=== PATIENT | male | born 1940 | race Caucasian/White ===

== ENCOUNTER 2017-01-10 23:55 | Observation (INO) | payer MEDICARE, BC ==
--- NOTE | 2017-01-11 00:10 | EDM.PDOC ---
ED HPI GENERAL MEDICAL PROBLEM - General Chief Complaint: General Stated Complaint: irregular heart beat Time Seen by Provider: 01/11/17 00:05 Source of Information: Reports: Patient, Family (Son, ), Old Records ([facility] chart/EMR), Other (Essentially EMR) History Limitations: Reports: No Limitations - History of Present Illness INITIAL COMMENTS - FREE TEXT/NARRATIVE: Patient was brought to the emergency room via private automobile by his son and for valuation of recurrence of his atrial fibrillation with rapid ventricular response with exact onset of his symptoms unknown at this time. He was late taking his evening medications this evening with patient taking his medications at 2100 hrs. rather than at 18:00 hours. No other history of medication noncompliance. The patient denies any chest pain/pressure, dizziness , orthostasis, orthopnea, diaphoresis, paresthesias, recent decreased exercise tolerance, or any other anginal-type symptoms. No recent history of abdominal pain, heartburn, nausea, diarrhea, melena, gross hematochezia, or any food intolerance, including fatty foods, etc.. The patient also denies any recent fever, cough, wheezing, dyspnea, etc.. Onset: Unknown/Unsure Duration: Constant Location: Reports: Other (No pain) Improves with: Reports: None Worsens with: Reports: None Context: Reports: Other (As above) Associated Symptoms: Reports: Weakness. Denies: Confusion, Chest Pain, Cough, Diaphoresis, Fever/Chills, Headaches, Loss of Appetite, Malaise, Nausea/Vomiting , Seizure, Shortness of Breath, Syncope Treatments CORRECTIVE THERAPY AIDE: Reports: Other (see below) (None) - Related Data Allergies Allergy/AdvReac Type Severity Reaction Status Date / Time metformin Allergy TIRED, Verified 01/11/17 00:54 SHAKING, SOB, CHEST PAIN Home Meds: Home Meds Gabapentin 900 mg PO BID 12/29/14 [History] Insulin Glarg,Human.Rec.Analog [LantUS Solostar] 60 units SUBCUT QAM 12/29/14 [ History] atorvaSTATin [Lipitor] 20 mg PO DAILY 12/29/14 [History] SitaGLIPtin [Januvia] 100 mg PO DAILY 01/02/17 [History] Apixaban [Eliquis] 5 mg PO BID 01/11/17 [History] InFLIXimab [Remicade] 100 mg IV ASDIRECTED 01/11/17 [History] Metoprolol Succinate [Toprol XL] 0.5 tab PO DAILY 01/11/17 [History] Past Medical History HEENT History: Reports: Impaired Vision, Other (See Below). Denies: Allergic Rhinitis, Cataract, Glaucoma, Hard of Hearing, Macular Degeneration, Retinal Detachment Other HEENT History: Patient wears glasses Cardiovascular History: Reports: Afib, Arrhythmia, CAD, Cardiomyopathy, Heart Murmur, High Cholesterol, Hypertension, Pulmonary Hypertension, PVD, Syncope, Other (See Below). 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 Denies: Intubation, Previous, Pneumothorax, Sleep Apnea Gastrointestinal History: Reports: Chronic Diarrhea, Colon Polyp, Gastritis, GI Bleed, Inflammatory Bowel Disease, Other (See Below). Denies: Celiac Disease, Cholelithiasis, Diverticulosis, Fecal Incontinence, GERD, Hepatitis, Hiatal Hernia, Jaundice, Pancreatitis, PUD Other Gastrointestinal History: Ulcerative colitis with history of hyperplastic colonic polyps; history of severe lower GI bleed secondary to Coumadin therapy and significantly elevated INR requiring epinephrine injection Genitourinary History: Reports: BPH, Chronic Renal Insuffiency, Diabetic Nephropathy, Other (See Below). Denies: Renal Calculus, STD, Urinary Incontinence, UTI, Recurrent Other Genitourinary History: Diabetic nephropathy with proteinuria Musculoskeletal History: Reports: Arthritis, Back Pain, Chronic, Fracture, Neck Pain, Chronic, Osteoarthritis, Osteoporosis, Other (See Below). Denies: Amputation, Gout, RA, SLE Other Musculoskeletal History: Previous clavicular fracture? Side at about age 12; toe fracture Neurological History: Reports: Neuropathy, Diabetic, Neuropathy, Peripheral, Other (See Below). Denies: Cerebral Aneurysms, Concussion, Head Trauma, MS, Parkinson's, Seizure, TIA Other Neuro History: Benign resting tremor Psychiatric History: Reports: Anxiety, Depression. Denies: Abuse, Victim of, ADD, ADHD, Addiction, Psych Hospitalization(s), PTSD, Suicide Attempt, Suicidal Ideation Endocrine/Metabolic History: Reports: Diabetes, Type II, IDDM, Obesity/BMI 30+. Denies: Hypothyroidism Hematologic History: Reports: Anemia, Blood Transfusion(s), Other (See Below) Other Hematologic History: 6 units of packed red blood cells for severe lower GI bleed on 10/24/16 Immunologic History: Reports: Immunosuppression, Other (See Below). 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 Denies: Eczema, Psoriasis - Infectious Disease History Infectious Disease History: Reports: Chicken Pox, Measles, Mumps. Denies: C- Difficile, Meningitis, Mononucleosis, MRSA, Pertussis (Whooping Cough), Rheumatic Fever, Rubella, Scarlet Fever, Shingles, VRE - Past Surgical History Head Surgeries/Procedures: Reports: None HEENT Surgical History: Reports: Adenoidectomy, Oral Surgery, Tonsillectomy, Other (See Below). Denies: Cataract Surgery, Eye Surgery, Laser Surgery, Myringotomy w Tube(s), Naso-Sinus Surgery Other HEENT Surgeries/Procedures: Tonsillectomy and adenoidectomy at about age 6 ; [place] teeth extraction 4 in his 60s; multiple dental implants in his 60s Cardiovascular Surgical History: Reports: Cardiac Ablation, Other (See Below). Denies: Varicose, Vascular Surgery Other Cardiovascular Surgeries/Procedures: Initial successful electrocardioversion of atrial fibrillation on 10/10/16 Respiratory Surgical History: Reports: None. Denies: Lung Biopsies, Thoracentesis GI Surgical History: Reports: Colonoscopy, EGD, Polypectomy, Other (See Below). Denies: Appendectomy, Cholecystectomy, Hernia, Abdominal, Hernia, Inguinal, Hernia Repair/Other Other GI Surgeries/Procedures: Multiple colonoscopies with last colonoscopy on by his GI specialist in [place] with previous history of polypectomies of hyperplastic colonic polyps; EGD in October 2016 Male Surgical History: Reports: Circumcision, Other (See Below). Denies: Vasectomy Other Male Surgeries/Procedures: Circumcision as an infant Endocrine Surgical History: Reports: None. Denies: Thyroid Biopsy Neurological Surgical History: Reports: None. Denies: C-Spine, Discectomy, Intracranial, Laminectomy, Lumbar Spine, Spinal Fusion, Vertebroplasty Musculoskeletal Surgical History: Reports: None. Denies: Arthroscopic Procedure , Carpal Tunnel, Ganglion Cyst, Joint Replacement, ORIF, Shoulder Surgery Oncologic Surgical History: Reports: None Dermatological Surgical History: Reports: None - Past Imaging History Past Imaging History: Reports: Angiography (Heart catheterization on 02/12/01), Cardiac Echo (Last echocardiogram transesophageal on 10/10/16 with decreased ejection fraction of 40-45% with otherwise results as above), Carotid US (), CAT Scan (CT of the pelvis without contrast on 09/09/13), Stress Testing ( Suboptimal Cardiolite stress test on 04/29/14 with ejection fraction of 69% with previous evaluation on 01/23/01) Social & Family History - Family History HEENT: Reports: None. Denies: Glaucoma, Macular Degeneration, Retinal Detachment Cardiac: Reports: High Cholesterol, Other (See Below). Denies: Afib, Aneurysm, Arrhythmia, Blood Clots/VTE/DVT, CAD, Heart Failure, Hypertension, DC, Syncope Other Cardiac Family History: Mother with hyperlipidemia Respiratory: Reports: None. Denies: Asthma, COPD, PE, Pneumothorax, Sleep Apnea GI: Reports: None, Other (See Below). Denies: Celiac Disease, Cholelithiasis, Colon Polyps, GERD, GI bleed, Inflammatory Bowel Disease, PUD Other GI Family History: Father, son, and daughter with possible colitis : Reports: None. Denies: Renal Calculus, Renal Disease/Insufficiency OBGYN: Reports: None. Denies: Endometriosis, Recurrent Spontaneous Musculoskeletal: Reports: None. Denies: Gout, RA, SLE Neurological: Reports: None. Denies: Alzheimers Disease, CVA, Dementia, Migraines, MS, Parkinson's, Seizure, TIA Psychiatric: Reports: Anxiety, Depression, Suicide Attempt, Other (See Below). Denies: Abuse, Victim of, ADD, ADHD, PTSD Other Psychiatric Family History: Anxiety depression disorder in mother, father , and daughter; daughter with fatal suicide at age 35 with father with successful suicide at age 45 Endocrine/Metabolic: Reports: None. Denies: Diabetes, Type I, Diabetes, type II , Hypothyroidism, IDDM Hematologic: Reports: None, Anemia. Denies: Transfusion Reaction Immunologic: Reports: None. Denies: AIDS, HIV, SLE Dermatologic: Reports: None. Denies: Eczema, Psoriasis Oncologic: Reports: None. Denies: Colon, Hodgkin's Lymphoma, Leukemia, Lymphoma , Non-Hodgkin's Lymphoma, Prostate, Skin - Tobacco Use Smoking Status *Q: Former Smoker Tobacco Use Within Last Twelve Months: Cigarettes Years of Tobacco use: 20 Packs/Tins Daily: 3 (Smoked between ages 20 and 50) Smoking Cessation Information Provided To Patient: No Second Hand Smoke Exposure: No Second Hand Smoke Education Provided: No - Caffeine Use Caffeine Use: Reports: Coffee (4 cups per day). Denies: Energy Drinks, Soda, Tea - Alcohol Use Alcohol Use History: Yes Days Per Week of Alcohol Use: 5 (No previous DWIs, problems with alcohol abuse, etc.) Number of Drinks Per Day: 3 (Usually mixed drinks) Total Drinks Per Week: 15 Alcohol Use in Last Twelve Months: Yes - Recreational Drug Use Recreational Drug Use: No Drug Use in Last 12 Months: No Recreational Drug Type: Denies: Amphetamines (Speed), Cocaine, Heroin, Inhalants (Glues, Solvents, Aerosols), LSD (Acid), Marijuana/Hashish, Methamphetamine - Living Situation & Occupation Living situation: Reports: (1958, 2 children), with Family () 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 Denies: Fever, Fatigue, Night Sweats, Diaphoresis, Decreased Appetite, Weight Loss, Weight Gain, Other HEENT: Denies: Dental Pain, Ear Discharge, Ear Pain, Glasses, Hearing Loss, Nose Pain, Rhinitis, Sinus Problem, Throat Pain, Throat Swelling, Vertigo, Vision Change Respiratory: Reports: No Symptoms. Denies: Shortness of Breath, Wheezing, Cough Cardiovascular: Reports: Palpitations. Denies: Chest Pain, Blood Pressure Problem, Claudication, Dyspnea on Exertion, Edema, Lightheadedness, Orthopnea, PND, Syncope Endocrine: Reports: No Symptoms, Fatigue, Other (Home Accu-Cheks averaging in the 150s with twice a day Accu-Cheks currently) GI/Abdominal: Reports: No Symptoms. Denies: Abdominal Pain, Anorexia, Black Stool, Bloody Stool, Constipation, Diarrhea, Decreased Appetite, Distension, Hematochezia, Melena, Nausea, Stool Incontinence, Vomiting : Reports: No Symptoms. Denies: Discharge, Dysuria, Flank Pain, Frequency, Hematuria, Incontinence, Pain, Urinary Retention Musculoskeletal: Reports: No Symptoms. Denies: Neck Pain, Shoulder Pain, Arm Pain, Back Pain, Leg Pain Skin: Reports: No Symptoms. Denies: Diaphoresis, Bruising Neurological: Reports: Numbness (Stable by history), Paresthesia (As above), Tingling (As above), Weakness (Nonspecific), Gait Disturbance (Unsteady gait). Denies: Confusion, Dizziness, Headache Psychiatric: Reports: Anxiety, Depression. Denies: Agitation, Confusion Hematologic/Lymphatic: Reports: No Symptoms Immunologic: Reports: No Symptoms ED EXAM, GENERAL - Physical Exam Exam: See Below Exam Limited By: No Limitations General Appearance: Alert, WD/WN, No Apparent Distress Eye Exam: Bilateral Eye: EOMI, Normal Fundi (No nystagmus; patient wearing glasses), PERRL Ears: Normal External Exam, Normal Canal, Hearing Grossly Normal, Normal TMs Nose: Normal Inspection, Normal Mucosa, No Blood Throat/Mouth: Normal Inspection, Normal Lips, Normal Teeth, Normal Gums, Normal Oropharynx, Normal Voice, No Airway Compromise. No: Dysphagia, Perioral Cyanosis Head: Atraumatic, Normocephalic Neck: Supple, Non-Tender, Full Range of Motion, Carotid Bruit (Moderate bilateral carotid bruits versus transmitted heart sounds). No: Lymphadenopathy (L), Lymphadenopathy (R), Thyromegaly Respiratory/Chest: No Respiratory Distress, No Accessory Muscle Use, Chest Non- Tender, Rales (Bilateral basilarmild). No: Pleural Rub, Retractions Cardiovascular: Normal Peripheral Pulses, No Edema, No Gallop, No JVD, No Murmur , No Rub, Tachycardia, Irregularly Irregular. No: Gallop/S3, Gallop/S4, Friction Rub Peripheral Pulses: 2+: Radial (L), Radial (R), Dorsalis Pedis (L), Dorsalis Pedis (R) GI/Abdominal: Normal Bowel Sounds, Soft, Non-Tender, No Organomegaly, No Distention, No Abnormal Bruit, No Mass, Other (Obese). No: Guarding (Male) Exam: Deferred Rectal (Males) Exam: Deferred Back Exam: Normal Inspection, Full Range of Motion. No: CVA Tenderness (L), CVA Tenderness (R), Muscle Spasm Extremities: Normal Inspection, Normal Range of Motion, Non-Tender, No Pedal Edema, Normal Capillary Refill. No: Pedal Edema, Ela's Sign Neurological: Alert, Oriented, CN II-XII Intact, Normal Cognition, Normal Reflexes (Negative Babinski's), No Motor/Sensory Deficits Psychiatric: Normal Affect Skin Exam: Warm, Dry, Intact, Normal Color, No Rash. 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 Atrial fibrillation 2. Incomplete right bundle branch block/bifascicular bundle-branch block 3. No acute ischemic changes Course - Vital Signs Last Recorded V/S: Last Vital Signs Temp 36.4 C 01/10/17 23:58 Pulse 106 H 01/11/17 01:00 Resp 17 01/11/17 01:00 BP 122/70 01/11/17 01:00 Pulse Ox 98 01/11/17 01:00 Vital Signs - 24 hr 01/10/17 01/10/17 01/11/17 23:55 23:58 00:05 Temperature [ 36.4 C 36.4 C Temporal] Pulse, 136 H 136 H 136 H Peripheral [ Right Pulse Oximetry] Respiratory 17 17 22 H Rate Blood Pressure 135/91 H 135/91 H 123/74 [Right Upper Arm] O2 Sat by Pulse 99 99 99 Oximetry O2 Sat by Pulse Oximetry [Room Air] 01/11/17 01/11/17 01/11/17 00:11 00:40 01:00 Temperature [ Temporal] Pulse, 106 H 106 H Peripheral [ Right Pulse Oximetry] Respiratory 21 H 17 Rate Blood Pressure 118/62 122/70 [Right Upper Arm] O2 Sat by Pulse 97 98 Oximetry O2 Sat by Pulse 99 Oximetry [Room Air] 01/11/17 01/11/17 01/11/17 01:10 01:21 01:35 Temperature [ Temporal] Pulse, 94 95 98 Peripheral [ Right Pulse Oximetry] Respiratory 21 H 20 18 Rate Blood Pressure 121/47 L 124/43 L 114/51 L [Right Upper Arm] O2 Sat by Pulse 96 98 95 Oximetry O2 Sat by Pulse Oximetry [Room Air] - Orders/Labs/Meds Orders: Active Orders 24 hr Category Date Time Status Cardiac Monitoring [RC] . DIRECTED Care 01/11/17 00:11 Active EKG Documentation Completion [RC] ASDIRECTED Care 01/11/17 00:11 Active Oxygen Therapy, ED [RC] CONTINUOUS Care 01/11/17 00:11 Active Peripheral IV Care [RC] . DIRECTED Care 01/11/17 00:11 Active Pulse Oximetry [RC] CONTINUOUS Care 01/11/17 00:11 Active Up With Assistance [RC] PFP Care 01/11/17 00:11 Active Vital Signs [RC] PFP Care 01/11/17 00:11 Active Nothing per Oral Now Diet [DIET] Diet 01/11/17 Breakfast Active Chest 1V Frontal [CR] Stat Exams 01/11/17 00:11 Ordered Sodium Chloride 0.9% [Saline Flush] Med 01/11/17 00:11 Active 10 ml FLUSH ASDIRECTED PRN Obtain Past Medical Record [OM.PC] Urgent Oth 01/11/17 00:11 Active Peripheral IV Insertion Adult [OM.PC] Stat Oth 01/11/17 00:11 Ordered Resuscitation Status Stat Resus Stat 01/11/17 00:11 Ordered Medication Orders Sodium Chloride (Saline Flush) 10 ml FLUSH ASDIRECTED PRN PRN Reason: Keep Vein Open Last Admin: 01/11/17 01:02 Dose: 10 ml Admin: 01/11/17 00:34 Dose: 10 ml Labs: Laboratory Tests 01/11/17 01/11/17 01/11/17 Range/Units 00:30 00:30 00:30 WBC 9.0 (4.0-10.2) K/uL RBC 4.66 (4.33-5.41) M/uL Hgb 13.2 (13.1-16.8) g/dL Hct 40.7 (39.0-49.0) % MCV 87.3 (84.0-98.0) fL MCH 28.3 (28.2-33.3) pg MCHC 32.4 (31.7-36.0) g/dL RDW 16.4 H (11.2-14.1) % Plt Count 225 (150-350) K/uL Neut % (Auto) 48.3 (45.0-80.0) % Lymph % (Auto) 34.4 (10.0-50.0) % [place] % (Auto) 11.2 (2.0-14.0) % Eos % (Auto) 5.8 H (0.0-5.0) % Baso % (Auto) 0.3 (0.0-2.0) % Neut # (Auto) 4.34 (1.40-7.00) K/uL Lymph # (Auto) 3.09 (0.50-3.50) K/uL [place] # (Auto) 1.01 H (0.00-1.00) K/uL Eos # (Auto) 0.52 H (0.00-0.50) K/uL Baso # (Auto) 0.03 (0.00-0.20) K/uL PT 11.6 (9.8-11.7) SEC INR 1.1 APTT 28.3 (22.1-29.8) SEC D-Dimer, Quantitative 205 (0-400) ng/mL Sodium (136-145) mmol/L Potassium (3.5-5.1) mmol/L Chloride (98-107) mmol/L Carbon Dioxide (21.0-32.0) mmol/L BUN (7-18) mg/dL Creatinine (0.51-1.17) mg/dL Est Cr Clr Drug Dosing mL/min Estimated GFR (MDRD) mL/min Glucose (74-106) mg/dL Lactic Acid (0.4-2.0) mmol/L Uric Acid (2.6-7.2) mg/dL Calcium (8.5-10.1) mg/dL Magnesium (1.8-2.4) mg/dL Total Bilirubin (0.2-1.0) mg/dL AST (15-37) U/L ALT (12-78) U/L Alkaline Phosphatase (46-116) IU/L Creatine Kinase (26-308) U/L Creatine Kinase Index (0.0-2.5) % CK-MB (CK-2) (0.00-3.60) ng/mL Troponin I (0.000-0.056) ng/mL NT-Pro-B Natriuret Pep (0-125) pg/mL Total Protein (6.4-8.2) g/dL Albumin (3.4-5.0) g/dL TSH, Ultra Sensitive (0.358-3.740) mIU/mL 01/11/17 01/11/17 Range/Units 00:30 00:30 WBC (4.0-10.2) K/uL RBC (4.33-5.41) M/uL Hgb (13.1-16.8) g/dL Hct (39.0-49.0) % MCV (84.0-98.0) fL MCH (28.2-33.3) pg MCHC (31.7-36.0) g/dL RDW (11.2-14.1) % Plt Count (150-350) K/uL Neut % (Auto) (45.0-80.0) % Lymph % (Auto) (10.0-50.0) % [place] % (Auto) (2.0-14.0) % Eos % (Auto) (0.0-5.0) % Baso % (Auto) (0.0-2.0) % Neut # (Auto) (1.40-7.00) K/uL Lymph # (Auto) (0.50-3.50) K/uL [place] # (Auto) (0.00-1.00) K/uL Eos # (Auto) (0.00-0.50) K/uL Baso # (Auto) (0.00-0.20) K/uL PT (9.8-11.7) SEC INR APTT (22.1-29.8) SEC D-Dimer, Quantitative (0-400) ng/mL Sodium 139 (136-145) mmol/L Potassium 4.2 (3.5-5.1) mmol/L Chloride 102 (98-107) mmol/L Carbon Dioxide 25.1 (21.0-32.0) mmol/L BUN 19 H (7-18) mg/dL Creatinine 1.00 (0.51-1.17) mg/dL Est Cr Clr Drug Dosing 66.93 mL/min Estimated GFR (MDRD) > 60 mL/min Glucose 237 H (74-106) mg/dL Lactic Acid 2.2 H (0.4-2.0) mmol/L Uric Acid 6.2 (2.6-7.2) mg/dL Calcium 9.0 (8.5-10.1) mg/dL Magnesium 1.5 L (1.8-2.4) mg/dL Total Bilirubin 0.4 (0.2-1.0) mg/dL AST 29 (15-37) U/L ALT 30 (12-78) U/L Alkaline Phosphatase 107 (46-116) IU/L Creatine Kinase 116 (26-308) U/L Creatine Kinase Index 2.1 (0.0-2.5) % CK-MB (CK-2) 2.40 (0.00-3.60) ng/mL Troponin I 0.030 (0.000-0.056) ng/mL NT-Pro-B Natriuret Pep 2008 H (0-125) pg/mL Total Protein 8.2 (6.4-8.2) g/dL Albumin 3.4 (3.4-5.0) g/dL TSH, Ultra Sensitive 2.201 (0.358-3.740) mIU/mL Meds: Medications Generic Name Dose Route Start Last Admin Trade Name Freq PRN Reason Stop Dose Admin Sodium Chloride 10 ml 01/11/17 00:11 01/11/17 01:02 Saline Flush FLUSH 10 ml ASDIRECTED PRN Administration Keep Vein Open Discontinued Medications Generic Name Dose Route Start Last Admin Trade Name Freq PRN Reason Stop Dose Admin Diltiazem HCl 10 mg 01/11/17 00:13 01/11/17 00:28 Diltiazem IVPUSH 01/11/17 00:14 10 mg ONETIME ONE Administration Diltiazem HCl 180 mg 01/11/17 00:44 01/11/17 00:50 Cardizem Cd PO 01/11/17 00:45 180 mg ONETIME ONE Administration Diltiazem HCl 10 mg 01/11/17 00:47 Diltiazem IVPUSH 01/11/17 00:48 ONETIME ONE Diltiazem HCl 10 mg 01/11/17 00:55 01/11/17 00:58 Diltiazem IVPUSH 01/11/17 00:56 10 mg ONETIME ONE Administration Famotidine 40 mg 01/11/17 00:11 01/11/17 00:32 Pepcid IVPUSH 01/11/17 00:12 40 mg ONETIME ONE Administration - Radiology Interpretation Free Text/Narrative:: case monitor showed initial atrial fibrillation with rapid ventricular response with heart rate in the high 130s to the 140s with no other ectopy or arrhythmia. Improvement to the 90s and 100s after aggressive treatment as above Chest x-ray, portable, shows evidence of moderate COPD changes with probable pulmonary hypertension and mild centralized CHF, however no pneumothorax, pulmonary infiltrates, etc. Mild prominence of the proximal aortic arch Departure - Departure Time of Disposition: 01:50 Disposition: Refer to Observation Condition: Good Clinical Impression: Atrial fibrillation with rapid ventricular response, Valvular disease, IDDM ( insulin dependent diabetes mellitus), Lactic acid blood increased, Hypomagnesemia CHF (congestive heart failure) Qualifiers: Congestive heart failure type: systolic Congestive heart failure chronicity: acute on chronic Qualified Code(s): I50.23 - Acute on chronic systolic ( congestive) heart failure Ulcerative colitis Qualifiers: Ulcerative colitis location: ulcerative rectosigmoiditis Digestive disease complication type: without complication Qualified Code(s): K51.30 - 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 Note the patient is already on anticoagulation therapy. Mild troponin I elevation secondary to his CHF with recent echocardiogram as below. Symptoms somewhat refractory to therapy initially. Consider cardiology consultation for possible cardiac ablation with recent initially successful cardioversion as above. Initiate standard rule out DC orders (2) CHF (congestive heart failure) SNOMED Code(s): 38385097 Code(s): I50.9 - HEART FAILURE, UNSPECIFIED Status: Acute Priority: Medium Current Visit: Yes Annotation/Comment:: Mild CHF. Otherwise negative cardiac enzymes. Initiate mild IV diuresis with caution secondary to mild borderline low blood pressures Qualifiers: Congestive heart failure type: systolic Congestive heart failure chronicity : acute on chronic Qualified Code(s): I50.23 - Acute on chronic systolic ( congestive) heart failure (3) Hypomagnesemia SNOMED Code(s): 969847927 Code(s): E83.42 - HYPOMAGNESEMIA Status: Acute Priority: Medium Current Visit: Yes Onset Date: 01/11/17 Annotation/Comment:: Initiate magnesium oxide therapy (4) IDDM (insulin dependent diabetes mellitus) SNOMED Code(s): 65528961 Code(s): E11.9 - TYPE 2 DIABETES MELLITUS WITHOUT COMPLICATIONS; Z79.4 - ALF (CURRENT) USE OF INSULIN Status: Chronic Priority: Medium Current Visit: Yes Annotation/Comment:: Blood Sugars have been under good control by patient history. Glycosylated hemoglobin and lipid panel etc. blood (5) Lactic acid blood increased SNOMED Code(s): 6096184 Code(s): R79.89 - OTHER SPECIFIED ABNORMAL FINDINGS OF BLOOD CHEMISTRY Status: Acute Priority: Medium Current Visit: Yes Onset Date: 01/11/17 Annotation/Comment:: Mild borderline elevated lactic acid level but no fever, evidence of sepsis, etc. 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 (8) Osteoarthritis SNOMED Code(s): 836415724 Code(s): M19.90 - UNSPECIFIED OSTEOARTHRITIS, UNSPECIFIED SITE Status: Acute Current Visit: Yes Annotation/Comment:: Stable by history Qualifiers: Osteoarthritis location: multiple joints Osteoarthritis type: primary Qualified Code(s): M15.0 - Primary generalized (osteo)arthritis - Problem List Review Problem List Initiated/Reviewed/Updated: Yes - My Orders Last 24 Hours: My Active Orders 01/11/17 00:11 Cardiac Monitoring [RC] . DIRECTED EKG Documentation Completion [RC] ASDIRECTED Oxygen Therapy, ED [RC] CONTINUOUS Peripheral IV Care [RC] . DIRECTED Pulse Oximetry [RC] CONTINUOUS Up With Assistance [RC] PFP Vital Signs [RC] PFP Chest 1V Frontal [CR] Stat Sodium Chloride 0.9% [Saline Flush] 10 ml FLUSH ASDIRECTED PRN Obtain Past Medical Record [OM.PC] Urgent Peripheral IV Insertion Adult [OM.PC] Stat Resuscitation Status Stat 01/11/17 Breakfast Nothing per Oral Now Diet [DIET] - Assessment/Plan Admission H&P: Please use this note as an admission H&P Last 24 Hours: My Active Orders 01/11/17 00:11 Cardiac Monitoring [RC] . DIRECTED EKG Documentation Completion [RC] ASDIRECTED Oxygen Therapy, ED [RC] CONTINUOUS Peripheral IV Care [RC] . DIRECTED Pulse Oximetry [RC] CONTINUOUS Up With Assistance [RC] PFP Vital Signs [RC] PFP Chest 1V Frontal [CR] Stat Sodium Chloride 0.9% [Saline Flush] 10 ml FLUSH ASDIRECTED PRN Obtain Past Medical Record [OM.PC] Urgent Peripheral IV Insertion Adult [OM.PC] Stat Resuscitation Status Stat 01/11/17 Breakfast Nothing per Oral Now Diet [DIET] Assessment:: As above Plan: As above. Extensive precautions were given to the patient and his family, who are in agreement with the treatment plan. Chris Jackson M.D., at the [facility], assumes care in the a.m.. The patient's condition is stable enough for observation status and general supervision.
[2017-01-11] MEDS ORDERED: Famotidine 20 MG/2 ML SDV IVPUSH ONE (00:11)
[2017-01-11] MEDS ORDERED: Diltiazem 25 MG/5 ML SDV IVPUSH ONE ×3 (00:13→00:55)
[2017-01-11] MEDS: Sodium Chloride 0.9% 10 ML Syringe FLUSH PRN ×2 (00:34→01:02)
[2017-01-11] MEDS ORDERED: Diltiazem 180 MG Cap.CD PO ONE (00:44)
[2017-01-11 01:12] LABS: CHLORIDE,CL 102 mmol/L (98-107); SODIUM,NA 139 mmol/L (136-145)
[2017-01-11] MEDS ORDERED: Temazepam 15 MG Cap PO PRN (01:53)
[2017-01-11] MEDS ORDERED: Sodium Chloride 0.9% 10 ML Syringe FLUSH PRN (01:53)
[2017-01-11] MEDS ORDERED: Acetaminophen 325 MG Tab PO PRN (01:53)
[2017-01-11] MEDS ORDERED: Furosemide 40 MG/4 ML VIAL IVPUSH SCH ×2 (02:00→02:15)
[2017-01-11] MEDS ORDERED: Magnesium Oxide 400 MG Tab PO ONE (02:06)
[2017-01-11] MEDS: Apixaban 5 MG Tab PO SCH ×2 (07:28→18:31)
[2017-01-11] MEDS: Gabapentin 300 MG Cap PO SCH ×2 (07:28→18:31)
[2017-01-11] MEDS: Potassium Chloride 20 MEQ Tab.ER PO SCH ×2 (07:29→18:31)
[2017-01-11] MEDS ORDERED: INSULIN GLARG HUMAN REC ANALOG SUBCUT SCH (08:00)
[2017-01-11] MEDS ORDERED: Metoprolol Succinate 25 MG Tab.ER PO SCH ×2 (08:00)
[2017-01-11] MEDS ORDERED: Potassium Chloride 20 MEQ Tab.ER PO SCH (08:00)
[2017-01-11] MEDS ORDERED: Non-Formulary Medication 1 Each (Sitagliptin [Januvia] 100 MG) PO SCH (08:00)
--- NOTE | 2017-01-11 11:18 | PCM.PN ---
- General Info Date of Service: 01/11/17 - Review of Systems General: Reports: Weakness, Fatigue HEENT: Reports: No Symptoms Pulmonary: Reports: No Symptoms Cardiovascular: Denies: Chest Pain, Palpitations Gastrointestinal: Reports: No Symptoms Genitourinary: Reports: No Symptoms Musculoskeletal: Reports: No Symptoms Skin: Reports: No Symptoms Neurological: Reports: No Symptoms Psychiatric: Reports: No Symptoms - Patient Data Vitals - Most Recent: Last Vital Signs Temp 97.1 F 01/11/17 10:00 Pulse 43 L 01/11/17 10:00 Resp 15 01/11/17 10:00 BP 102/53 L 01/11/17 10:00 Pulse Ox 100 01/11/17 10:00 Weight - Most Recent: 239 lb 9.6 oz Lab Results Last 24 Hours: Laboratory Results - last 24 hr 01/11/17 01/11/17 01/11/17 Range/Units 06:20 06:20 06:20 Hemoglobin A1c 7.6 H (4.3-5.7) % Lactic Acid 1.5 (0.4-2.0) mmol/L Creatine Kinase 96 (26-308) U/L Creatine Kinase Index 2.1 (0.0-2.5) % CK-MB (CK-2) 2.00 (0.00-3.60) ng/mL Troponin I 0.030 (0.000-0.056) ng/mL Triglycerides 51 (30-150) mg/dL Cholesterol 114 (100-200) mg/dL LDL Cholesterol, Calc 47 (0-100) mg/dL HDL Cholesterol 57 (40-60) mg/dL Anjel Results Last 24 Hours: Microbiology 01/11/17 10:10 Stool Occult Blood (ANJEL) - Final Stool / Feces NEGATIVE OCCULT BLOOD Med Orders - Current: Current Medications Acetaminophen (Tylenol) 650 mg PO Q4H PRN PRN Reason: Pain Apixaban (Eliquis) 5 mg PO BID [facility] Last Admin: 01/11/17 07:28 Dose: 5 mg Atorvastatin Calcium (Lipitor) 20 mg PO BEDTIME MARILY Furosemide (Lasix) 40 mg PO DAILY [facility] Gabapentin (Neurontin) 900 mg PO BID [facility] Last Admin: 01/11/17 07:28 Dose: 900 mg Insulin Detemir (Levemir) 40 unit SUBCUT BID [facility] Magnesium Oxide (Magnesium Oxide) 400 mg PO QPM [facility] Metoprolol Succinate (Toprol Xl) 25 mg PO BID [facility] Last Admin: 01/11/17 07:29 Dose: 25 mg Potassium Chloride (Klor-Con M20) 20 meq PO BID [facility] Last Admin: 01/11/17 07:29 Dose: 20 meq Sodium Chloride (Saline Flush) 10 ml FLUSH ASDIRECTED PRN PRN Reason: Keep Vein Open Last Admin: 01/11/17 01:02 Dose: 10 ml Sodium Chloride (Saline Flush) 10 ml FLUSH Q12HR PRN PRN Reason: Keep Vein Open Temazepam (Restoril) 15 mg PO BEDTIME PRN PRN Reason: Insomnia Discontinued Medications Diltiazem HCl (Diltiazem) 10 mg IVPUSH ONETIME ONE Stop: 01/11/17 00:14 Last Admin: 01/11/17 00:28 Dose: 10 mg Diltiazem HCl (Cardizem Cd) 180 mg PO ONETIME ONE Stop: 01/11/17 00:45 Last Admin: 01/11/17 00:50 Dose: 180 mg Diltiazem HCl (Diltiazem) 10 mg IVPUSH ONETIME ONE Stop: 01/11/17 00:48 Diltiazem HCl (Diltiazem) 10 mg IVPUSH ONETIME ONE Stop: 01/11/17 00:56 Last Admin: 01/11/17 00:58 Dose: 10 mg Famotidine (Pepcid) 40 mg IVPUSH ONETIME ONE Stop: 01/11/17 00:12 Last Admin: 01/11/17 00:32 Dose: 40 mg Furosemide (Lasix) 40 mg IVPUSH Q8H [facility] Last Admin: 01/11/17 03:04 Dose: Not Given Furosemide (Lasix) 40 mg IVPUSH Q12H [facility] Last Admin: 01/11/17 02:54 Dose: 40 mg Magnesium Oxide (Magnesium Oxide) 400 mg PO ONETIME ONE Stop: 01/11/17 02:07 Last Admin: 01/11/17 02:54 Dose: 400 mg Metoprolol Succinate (Toprol Xl) mg PO DAILY [facility] Non-Formulary Medication (Insulin Glarg,Human.Rec.Analog) 40 units SUBCUT BID [facility] Potassium Chloride (Klor-Con M20) 20 meq PO TID [facility] - Exam General: Alert, Oriented HEENT: Pupils Equal, Pupils Reactive, EOMI, Mucous Membr. Moist/[place] Neck: Supple Lungs: Clear to Auscultation, Normal Respiratory Effort Cardiovascular: Irregular Rhythm, Bradycardia GI/Abdominal Exam: Normal Bowel Sounds, Soft, Non-Tender, No Organomegaly, No Distention, No Abnormal Bruit, No Mass, Pelvis Stable (Male) Exam: Deferred Back Exam: Normal Inspection Extremities: Normal Inspection, Normal Range of Motion, Non-Tender, No Pedal Edema, Normal Capillary Refill Skin: Warm, Dry, Intact Neurological: No New Focal Deficit Psy/Mental Status: Alert, Normal Affect, Normal Mood - Problem List & Annotations (1) Atrial fibrillation with rapid ventricular response SNOMED Code(s): 013782307416153 Code(s): I48.91 - UNSPECIFIED ATRIAL FIBRILLATION Status: Acute Priority : High Current Visit: Yes Onset Date: 10/08/16 Annotation/Comment:: Patient currently bradycardiac with regular irregular rate. Lasix dose adjusted to PO daily starting in the AM. Will coninue to monitor. Troponin ordered for 1200. EKG ordered for AM. (2) CHF (congestive heart failure) SNOMED Code(s): 66546111 Code(s): I50.9 - HEART FAILURE, UNSPECIFIED Status: Acute Priority: Medium Current Visit: Yes Qualifiers: Congestive heart failure type: systolic Congestive heart failure chronicity : acute on chronic Qualified Code(s): I50.23 - Acute on chronic systolic ( congestive) heart failure Annotation/Comment:: Mild CHF. Lasix switched to PO in AM. Will continue to monitor. - Problem List Review Problem List Initiated/Reviewed/Updated: Yes - My Orders Last 24 Hours: My Active Orders 01/11/17 11:08 Blood Glucose Check, Bedside [RC] QIDACANDBED 01/11/17 Lunch [employer] [place] Diet [DIET] Heart Healthy Diet [DIET] 01/12/17 05:11 EKG Documentation Completion [RC] ASDIRECTED EKG 12 Lead [EK] Stat 01/12/17 08:00 Furosemide [Lasix] 40 mg PO DAILY - Plan Plan:: See above.
[2017-01-11] MEDS ORDERED: Magnesium Oxide 400 MG Tab PO SCH (18:00)
[2017-01-11] MEDS ORDERED: Insulin Detemir 100 Units/ML 3 ML Pen SUBCUT SCH (18:00)
[2017-01-11] MEDS ORDERED: atorvaSTATin 10 MG Tab PO SCH (20:00)
[2017-01-11 21:42] VITALS: BP 118/58
--- NOTE | 2017-01-11 22:46 | PCM.DCSUM1 ---
Discharge Summary - Hospital Course Free Text/Narrative:: Patient 76-year-old gentleman who was seen in the ER with atrial fibrillation with tachycardia at that time he was treated and admitted since around 4 PM patient been on sinus rhythm with premature ventricular contractions patient has been asymptomatic I would like to go home at this time patient will be discharged on his regular medications plus Lasix 40 mg by mouth daily for CHF - Discharge Data Discharge Date: 01/11/17 Discharge Disposition: Home, Self-Care 01 Condition: Fair - Discharge Diagnosis/Problem(s) (1) Atrial fibrillation with rapid ventricular response SNOMED Code(s): 508125923040354 ICD Code: I48.91 - UNSPECIFIED ATRIAL FIBRILLATION Status: Acute Priority : High Current Visit: Yes Onset Date: 10/08/16 Problem Details: Patient currently bradycardiac with regular irregular rate. Lasix dose adjusted to PO daily starting in the AM. Will coninue to monitor. Troponin ordered for 1200. EKG ordered for AM. (2) CHF (congestive heart failure) SNOMED Code(s): 00630710 ICD Code: I50.9 - HEART FAILURE, UNSPECIFIED Status: Acute Priority: Medium Current Visit: Yes Problem Details: Mild CHF. Lasix switched to PO in AM. Will continue to monitor. Qualifiers: Congestive heart failure type: systolic Congestive heart failure chronicity : acute on chronic Qualified Code(s): I50.23 - Acute on chronic systolic ( congestive) heart failure - Patient Instructions Diet: Heart Healthy Diet Driving: May Drive Today Showering/Bathing: May Shower - Discharge Plan Prescriptions/Med Rec: Furosemide [Lasix] 40 mg PO DAILY #30 tablet Home Medications: Home Meds Gabapentin 900 mg PO BID 12/29/14 [History] Insulin Glarg,Human.Rec.Analog [LantUS Solostar] 40 units SUBCUT BID 12/29/14 [ History] atorvaSTATin [Lipitor] 20 mg PO BEDTIME 12/29/14 [History] SitaGLIPtin [Januvia] 100 mg PO DAILY 01/02/17 [History] Apixaban [Eliquis] 5 mg PO BID 01/11/17 [History] Furosemide [Lasix] 40 mg PO DAILY #30 tablet 01/11/17 [Rx] InFLIXimab [Remicade] 100 mg IV ASDIRECTED 01/11/17 [History] Metoprolol Succinate [Toprol XL] 0.5 tab PO DAILY 01/11/17 [History] Forms: ED Department Discharge Referrals: Chris Jackson MD [Primary Care Provider] - - General Info Date of Service: 01/11/17 - Review of Systems General: Reports: Weakness HEENT: Reports: No Symptoms Pulmonary: Reports: No Symptoms Cardiovascular: Reports: No Symptoms, Dyspnea on Exertion Gastrointestinal: Reports: No Symptoms Genitourinary: Reports: No Symptoms Musculoskeletal: Reports: No Symptoms Skin: Reports: No Symptoms Neurological: Reports: No Symptoms Psychiatric: Reports: No Symptoms - Patient Data Vitals - Most Recent: Last Vital Signs Temp 97.5 F 01/11/17 20:00 Pulse 41 L 01/11/17 20:00 Resp 18 01/11/17 20:00 BP 118/58 L 01/11/17 20:00 Pulse Ox 97 01/11/17 20:00 Weight - Most Recent: 239 lb 9.6 oz I&O - Last 24 hours: Intake & Output 01/11/17 01/11/17 01/11/17 06:59 14:59 22:59 Intake Total 120 300 Balance 120 300 Lab Results - Last 24 hrs: Laboratory Results - last 24 hr 01/11/17 01/11/17 01/11/17 Range/Units 06:20 06:20 06:20 POC Glucose (65-110) mg/dl Hemoglobin A1c 7.6 H (4.3-5.7) % Lactic Acid 1.5 (0.4-2.0) mmol/L Creatine Kinase 96 (26-308) U/L Creatine Kinase Index 2.1 (0.0-2.5) % CK-MB (CK-2) 2.00 (0.00-3.60) ng/mL Troponin I 0.030 (0.000-0.056) ng/mL Triglycerides 51 (30-150) mg/dL Cholesterol 114 (100-200) mg/dL LDL Cholesterol, Calc 47 (0-100) mg/dL HDL Cholesterol 57 (40-60) mg/dL 01/11/17 01/11/17 01/11/17 Range/Units 11:40 11:42 17:11 POC Glucose 171 H 269 H* (65-110) mg/dl Hemoglobin A1c (4.3-5.7) % Lactic Acid (0.4-2.0) mmol/L Creatine Kinase 79 (26-308) U/L Creatine Kinase Index 2.0 (0.0-2.5) % CK-MB (CK-2) 1.60 (0.00-3.60) ng/mL Troponin I 0.022 (0.000-0.056) ng/mL Triglycerides (30-150) mg/dL Cholesterol (100-200) mg/dL LDL Cholesterol, Calc (0-100) mg/dL HDL Cholesterol (40-60) mg/dL STELLA Results - Last 24 hrs: Microbiology 01/11/17 10:10 Stool Occult Blood (STELLA) - Final Stool / Feces NEGATIVE OCCULT BLOOD Med Orders - Current: Current Medications Acetaminophen (Tylenol) 650 mg PO Q4H PRN PRN Reason: Pain Apixaban (Eliquis) 5 mg PO BID [facility] Last Admin: 01/11/17 18:31 Dose: 5 mg Atorvastatin Calcium (Lipitor) 20 mg PO BEDTIME [facility] Last Admin: 01/11/17 20:14 Dose: 20 mg Furosemide (Lasix) 40 mg PO DAILY [facility] Gabapentin (Neurontin) 900 mg PO BID [facility] Last Admin: 01/11/17 18:31 Dose: 900 mg Insulin Detemir (Levemir) 40 unit SUBCUT BID [facility] Last Admin: 01/11/17 19:01 Dose: Not Given Magnesium Oxide (Magnesium Oxide) 400 mg PO QPM [facility] Last Admin: 01/11/17 18:31 Dose: 400 mg Metoprolol Succinate (Toprol Xl) 12.5 mg PO DAILY [facility] Potassium Chloride (Klor-Con M20) 20 meq PO BID [facility] Last Admin: 01/11/17 18:31 Dose: 20 meq Sodium Chloride (Saline Flush) 10 ml FLUSH ASDIRECTED PRN PRN Reason: Keep Vein Open Last Admin: 01/11/17 01:02 Dose: 10 ml Sodium Chloride (Saline Flush) 10 ml FLUSH Q12HR PRN PRN Reason: Keep Vein Open Temazepam (Restoril) 15 mg PO BEDTIME PRN PRN Reason: Insomnia Discontinued Medications Diltiazem HCl (Diltiazem) 10 mg IVPUSH ONETIME ONE Stop: 01/11/17 00:14 Last Admin: 01/11/17 00:28 Dose: 10 mg Diltiazem HCl (Cardizem Cd) 180 mg PO ONETIME ONE Stop: 12/01/17 00:45 Last Admin: 01/11/17 00:50 Dose: 180 mg Diltiazem HCl (Diltiazem) 10 mg IVPUSH ONETIME ONE Stop: 01/11/17 00:48 Diltiazem HCl (Diltiazem) 10 mg IVPUSH ONETIME ONE Stop: 01/11/17 00:56 Last Admin: 01/11/17 00:58 Dose: 10 mg Famotidine (Pepcid) 40 mg IVPUSH ONETIME ONE Stop: 01/11/17 00:12 Last Admin: 01/11/17 00:32 Dose: 40 mg Furosemide (Lasix) 40 mg IVPUSH Q8H [facility] Last Admin: 01/11/17 03:04 Dose: Not Given Furosemide (Lasix) 40 mg IVPUSH Q12H [facility] Last Admin: 01/11/17 02:54 Dose: 40 mg Magnesium Oxide (Magnesium Oxide) 400 mg PO ONETIME ONE Stop: 01/11/17 02:07 Last Admin: 01/11/17 02:54 Dose: 400 mg Metoprolol Succinate (Toprol Xl) mg PO DAILY [facility] Metoprolol Succinate (Toprol Xl) 25 mg PO BID [facility] Last Admin: 01/11/17 07:29 Dose: 25 mg Non-Formulary Medication (Insulin Glarg,Human.Rec.Analog) 40 units SUBCUT BID [facility] Potassium Chloride (Klor-Con M20) 20 meq PO TID [facility] - Exam General: Reports: Alert, Oriented HEENT: Reports: Pupils Equal, Pupils Reactive, EOMI, Mucous Membr. Moist/[place] Neck: Reports: Supple Lungs: Reports: Clear to Auscultation, Normal Respiratory Effort Cardiovascular: Reports: Irregular Rhythm, Bradycardia GI/Abdominal Exam: Normal Bowel Sounds, Soft, Non-Tender, No Organomegaly, No Distention, No Abnormal Bruit, No Mass, Pelvis Stable (Male) Exam: Deferred Rectal (Males) Exam: Deferred Back Exam: Reports: Normal Inspection, Full Range of Motion Extremities: Normal Inspection, Normal Range of Motion, Non-Tender, No Pedal Edema, Normal Capillary Refill Skin: Reports: Warm, Dry, Intact Wound/Incisions: Reports: Healing Well Neurological: Reports: No New Focal Deficit Psy/Mental Status: Reports: Alert, Normal Affect, Normal Mood *Q Meaningful Use (DIS) - VTE *Q VTE Criteria *Q: - Stroke *Q Stroke Criteria *Q: - AMI *Q AMI Criteria *Q:
[2017-01-12] MEDS ORDERED: Metoprolol Succinate 25 MG Tab.ER PO SCH (08:00)
[2017-01-12] MEDS ORDERED: Furosemide 40 MG Tab PO SCH (08:00)
--- NOTE | 2017-01-14 16:29 | PCM.SN ---
- Free Text/Narrative Note: Telephone consultation at 16:20 hours with the patient's concerning recently obtained positive results of H pylori stool antigen from recent hospitalization. The patient did have some CHF, atrial fibrillation with rapid ventricular response, and hypomagnesemia during recent hospitalization with no recurrence of his symptoms since hospital discharge. No apparent recent chest pain or other anginal-type symptoms. Patient is also apparently not having any significant abdominal complaints. I did recommend that the patient follow-up with his regular provider later this week for reevaluation and recommended repeat BMP, magnesium level, BNP, and troponin I. Note that no change in his previous medications were made during recent hospitalization with exception of initiation of Lasix with no potassium or magnesium prescribed at discharge, although these were given during his above hospitalization. The patient should discuss his above positive H pylori evaluation at the above follow-up visit with further treatment, workup, etc. per discretion of his regular provider. Extensive precautions were given to the patient's , who is in agreement with the treatment plan.
== END 2017-01-11 23:44 | disposition home or self-care (01) ==
LOC: LL.ED 23:55 → LL.MS 01-11 01:40
PROVIDERS: ADMIT Family Medicine; ATTEND Family Medicine
DX: I48.91 Unspecified atrial fibrillation (principal); I50.23 Acute on chronic systolic (congestive) heart failure; E83.42 Hypomagnesemia; R79.89 Other specified abnormal findings of blood chemistry; K51.30 Ulcerative (chronic) rectosigmoiditis without complications; I38 Endocarditis, valve unspecified; I25.10 Atherosclerotic heart disease of native coronary artery without angina pectoris; E78.00 Pure hypercholesterolemia, unspecified; I27.20 Pulmonary hypertension, unspecified; I73.9 Peripheral vascular disease, unspecified; M15.0 Primary generalized (osteo)arthritis; J44.9 Chronic obstructive pulmonary disease, unspecified; J18.9 Pneumonia, unspecified organism; K52.9 Noninfective gastroenteritis and colitis, unspecified; N40.0 Benign prostatic hyperplasia without lower urinary tract symptoms; E11.22 Type 2 diabetes mellitus with diabetic chronic kidney disease; I12.9 Hypertensive chronic kidney disease with stage 1 through stage 4 chronic kidney disease, or unspecified chronic kidney disease; N18.9 Chronic kidney disease, unspecified; E11.42 Type 2 diabetes mellitus with diabetic polyneuropathy; E11.21 Type 2 diabetes mellitus with diabetic nephropathy; F41.9 Anxiety disorder, unspecified; F32.9 Major depressive disorder, single episode, unspecified; E66.9 Obesity, unspecified; Z88.8 Allergy status to other drugs, medicaments and biological substances; Z79.4 Long term (current) use of insulin; Z79.899 Other long term (current) drug therapy; Z68.30 Body mass index [BMI] 30.0-30.9, adult; Z98.890 Other specified postprocedural states; Z87.891 Personal history of nicotine dependence
CPT/HCPCS: 36415; 71010; 80053; 80061; 82272; 82550; 82553; 82962; 83036; 83605; 83735; 83880; 84443; 84484; 84550; 85025; 85379; 85610; 85730; 87338; 93005; 96374; 96375; 99285; A9270; J1940; J3490; J7050; 93010; 96376; 99236; G0378; S0028

== ENCOUNTER → 2018-12-26 | Outpatient (CLI) | payer MEDICARE, BC | LOC: LL.CLIN 12:00 | PROVIDERS: ATTEND Nurse Practitioner | DX: L20.9 Atopic dermatitis, unspecified (principal); R00.0 Tachycardia, unspecified; L57.0 Actinic keratosis; Z87.891 Personal history of nicotine dependence | CPT/HCPCS: 99214 ==

== ENCOUNTER 2019-04-20 09:55 | Emergency (ER) | payer MEDICARE, BC ==
[2019-04-20 10:48] LABS: CHLORIDE,CL 100 mmol/L (98-107); SODIUM,NA 143 mmol/L (136-145)
[2019-04-20] MEDS ORDERED: Sodium Chloride 0.9% 1,000 ML IV SCH (11:30)
[2019-04-20] MEDS ORDERED: Sodium Chloride 0.9% 1,000 ML IV ONE (11:30)
--- NOTE | 2019-04-20 11:31 | EDM.PDOC ---
ED HPI GENERAL MEDICAL PROBLEM - General Chief Complaint: General Stated Complaint: weakness, snycope Time Seen by Provider: 04/20/19 10:00 Source of Information: Reports: Patient, Family History Limitations: Reports: Altered Mental Status - History of Present Illness INITIAL COMMENTS - FREE TEXT/NARRATIVE: Pt brought to ER after having syncopal episode Family states pt was standing and passed out Did not fall Family lowered him down Pt had chemo 11 days ago for lymphoma Decreased activity and appetite Onset: Today, Sudden Duration: Hour(s):, Improving Location: Reports: Generalized - Related Data Allergies Allergy/AdvReac Type Severity Reaction Status Date / Time metformin Allergy TIRED, Verified 01/11/17 00:54 SHAKING, SOB, CHEST PAIN Home Meds: Home Meds Gabapentin 900 mg PO BID 12/29/14 [History] Insulin Glarg,Human.Rec.Analog [LantUS Solostar] 40 units SUBCUT BID 12/29/14 [ History] atorvaSTATin [Lipitor] 20 mg PO BEDTIME 12/29/14 [History] SitaGLIPtin [Januvia] 100 mg PO DAILY 01/02/17 [History] Apixaban [Eliquis] 5 mg PO BID 01/11/17 [History] Furosemide [Lasix] 40 mg PO DAILY #30 tablet 01/11/17 [Rx] Metoprolol Succinate [Toprol XL] 0.5 tab PO DAILY 01/11/17 [History] Acyclovir 200 mg PO BID 04/20/19 [History] Sulfamethoxazole/Trimethoprim [Septra DS] 1 tab PO ASDIRECTED 04/20/19 [History] Past Medical History HEENT History: Reports: Impaired Vision, Other (See Below) Other HEENT History: Patient wears glasses Cardiovascular History: Reports: Afib, Arrhythmia, CAD, Cardiomyopathy, Heart Murmur, High Cholesterol, Hypertension, Pulmonary Hypertension, PVD, Syncope, Other (See Below) Other Cardiovascular History: PVCs, PACs, and 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 in January 2001; tricuspid and mitral valve insufficiency by echocardiogram on 02/07/01; Aortic valve stenosis; mild carotid occlusive disease; left ventricular enlargement; syncopal episode secondary to GI bleed in October 2016 as below; sudden onset atrial fibrillation with rapid ventricular response on 10/08/16 with brief successful electrocardioversion; mild pulmonary hypertension by echocardiogram on 10/09/16 Respiratory History: Reports: Bronchitis, Recurrent, COPD, Pneumonia, Recurrent Other Respiratory History: SOB WITH ACTIVITY Gastrointestinal History: Reports: Chronic Diarrhea, Colon Polyp, Gastritis, GI Bleed, Inflammatory Bowel Disease, Other (See Below) Other Gastrointestinal History: Ulcerative colitis with history of hyperplastic colonic polyps; history of severe lower GI bleed secondary to Coumadin therapy and significantly elevated INR requiring epinephrine injection Genitourinary History: Reports: BPH, Chronic Renal Insuffiency, Diabetic Nephropathy, Other (See Below) Other Genitourinary History: Diabetic nephropathy with proteinuria Musculoskeletal History: Reports: Arthritis, Back Pain, Chronic, Fracture, Neck Pain, Chronic, Osteoarthritis, Osteoporosis, Other (See Below) Other Musculoskeletal History: Previous clavicular fracture? 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 Denies: C- Difficile, Meningitis, Mononucleosis, MRSA, Pertussis (Whooping Cough), Rheumatic Fever, Rubella, Scarlet Fever, Shingles, VRE - Past Surgical History Head Surgeries/Procedures: Reports: None HEENT Surgical History: Reports: Adenoidectomy, Oral Surgery, Tonsillectomy, Other (See Below) Other HEENT Surgeries/Procedures: Tonsillectomy and adenoidectomy at about age 6 ; Clarks teeth extraction 4 in his 60s; multiple dental implants in his 60s Cardiovascular Surgical History: Reports: Cardiac Ablation, Other (See Below) Other Cardiovascular Surgeries/Procedures: Initial successful electrocardioversion of atrial fibrillation on 10/10/16 Respiratory Surgical History: Reports: None GI Surgical History: Reports: Colonoscopy, EGD, Polypectomy, Other (See Below) Other GI Surgeries/Procedures: Multiple colonoscopies with last colonoscopy on by his GI specialist in [place] with previous history of polypectomies of hyperplastic colonic polyps; EGD in October 2016 Male Surgical History: Reports: Circumcision, Other (See Below) Other Male Surgeries/Procedures: Circumcision as an Endocrine Surgical History: Reports: None Neurological Surgical History: Reports: None Musculoskeletal Surgical History: Reports: None Oncologic Surgical History: Reports: Bone Marrow Aspiration Dermatological Surgical History: Reports: None - Past Imaging History Past Imaging History: Reports: Angiography (Heart catheterization on 02/12/01), Cardiac Echo (Last echocardiogram transesophageal on 10/10/16 with decreased ejection fraction of 40-45% with otherwise results as above), Carotid US (), CAT Scan (CT of the pelvis without contrast on 09/09/13), Stress Testing ( Suboptimal Cardiolite stress test on 04/29/14 with ejection fraction of 69% with previous evaluation on 01/23/01) Social & Family History - Family History HEENT: Reports: None Cardiac: Reports: High Cholesterol, Other (See Below) Other Cardiac Family History: Mother with hyperlipidemia Respiratory: Reports: None GI: Reports: None, Other (See Below) Other GI Family History: Father, son, and daughter with possible colitis : Reports: None OBGYN: Reports: None Musculoskeletal: Reports: None Neurological: Reports: None Psychiatric: Reports: Anxiety, Depression, Suicide Attempt, Other (See Below) Other Psychiatric Family History: Anxiety depression disorder in mother, father , and daughter; daughter with fatal suicide at age 35 with father with successful suicide at age 45 Endocrine/Metabolic: Reports: None Hematologic: Reports: None, Anemia Immunologic: Reports: None Dermatologic: Reports: None Oncologic: Reports: None - Tobacco Use Smoking Status *Q: Never Smoker - Caffeine Use Caffeine Use: Reports: Coffee (4 cups per day). 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 57) ED ROS GENERAL - Review of Systems Review Of Systems: See Below Respiratory: Reports: No Symptoms Cardiovascular: Reports: No Symptoms GI/Abdominal: Reports: No Symptoms Neurological: Reports: Syncope ED EXAM, GENERAL - Physical Exam Exam: See Below Exam Limited By: Other (Lethargic) General Appearance: Lethargic Eye Exam: Bilateral Eye: EOMI, PERRL Throat/Mouth: Normal Oropharynx Head: Atraumatic Neck: Supple Respiratory/Chest: Lungs Clear Cardiovascular: Regular Rate, Rhythm, No Edema GI/Abdominal: Soft, Non-Tender Extremities: No Pedal Edema Neurological: Slow to Respond Course - Vital Signs Last Recorded V/S: Last Vital Signs Temp 97.2 F 04/20/19 10:01 Pulse 63 04/20/19 10:10 Resp 20 04/20/19 10:01 BP 136/67 04/20/19 10:10 Pulse Ox 96 04/20/19 10:22 - Orders/Labs/Meds Orders: Active Orders 24 hr Category Date Time Status Chest 1V Frontal [CR] Stat Exams 04/20/19 10:44 Taken Sodium Chloride 0.9% @ 150 MLS/HR (1000ml) Med 04/20/19 11:30 Ordered Sodium Chloride 0.9% [Normal Saline] 1,000 ml IV ASDIRECTED Medication Orders Sodium Chloride (Normal Saline) 1,000 mls @ 150 mls/hr IV ASDIRECTED MARILY Labs: Laboratory Tests 04/20/19 04/20/19 Range/Units 10:20 10:30 WBC 0.3 L* (4.0-10.2) K/uL RBC 5.32 (4.33-5.41) M/uL Hgb 16.2 (13.1-16.8) g/dL Hct 47.3 (39.0-49.0) % MCV 88.9 (84.0-98.0) fL MCH 30.5 (28.2-33.3) pg MCHC 34.2 (31.7-36.0) g/dL RDW 12.6 (11.2-14.1) % Plt Count 89 L D (150-350) K/uL Neut % (Auto) 3.2 L (45.0-80.0) % Lymph % (Auto) 64.5 H (10.0-50.0) % Jenkins % (Auto) 12.9 (2.0-14.0) % Eos % (Auto) 12.9 H (0.0-5.0) % Baso % (Auto) 6.5 H (0.0-2.0) % Neut # (Auto) 0.01 L (1.40-7.00) K/uL Lymph # (Auto) 0.20 L (0.50-3.50) K/uL Jenkins # (Auto) 0.04 (0.00-1.00) K/uL Eos # (Auto) 0.04 (0.00-0.50) K/uL Baso # (Auto) 0.02 (0.00-0.20) K/uL Sodium 143 (136-145) mmol/L Potassium 4.0 (3.5-5.1) mmol/L Chloride 100 (98-107) mmol/L Carbon Dioxide 33.0 H (21.0-32.0) mmol/L BUN 75 H D (7-18) mg/dL Creatinine 1.72 H (0.51-1.17) mg/dL Est Cr Clr Drug Dosing TNP Estimated GFR (MDRD) 39 mL/min Glucose 138 H (74-106) mg/dL Calcium 10.8 H (8.5-10.1) mg/dL Total Bilirubin 1.6 H (0.2-1.0) mg/dL AST 20 (15-37) U/L ALT 27 (12-78) U/L Alkaline Phosphatase 124 H (46-116) IU/L Total Protein 8.7 H (6.4-8.2) g/dL Albumin 3.7 (3.4-5.0) g/dL Meds: Medications Generic Name Dose Route Start Last Admin Trade Name Freq PRN Reason Stop Dose Admin Sodium Chloride 1,000 mls @ 150 mls/hr 04/20/19 11:30 Normal Saline IV ASDIRECTED [facility] - Re-Assessments/Exams Free Text/Narrative Re-Assessment/Exam: 04/20/19 11:31 See lab D/W Dr Paulette Ly [place] [facility] Will accept in transfer Departure - Departure Time of Disposition: 12:00 Disposition: DC/Tfer to [facility] 02 Clinical Impression: MYKEL (acute kidney injury) Syncope Qualifiers: Syncope type: unspecified Qualified Code(s): R55 - Syncope and collapse - Discharge Information Referrals: PCP,None [Primary Care Provider] - Sepsis Event Note - Evaluation Sepsis Screening Result: No Definite Risk - Focused Exam Vital Signs: Vital Signs Temp Pulse Resp BP Pulse Ox 04/20/19 10:22 96 04/20/19 10:10 63 136/67 92 L 04/20/19 10:01 97.2 F 63 20 126/63 93 L Date Exam was Performed: 04/20/19 Time Exam was Performed: 11:26 - My Orders Last 24 Hours: My Active Orders 04/20/19 10:44 Chest 1V Frontal [CR] Stat 04/20/19 11:30 Sodium Chloride 0.9% @ 150 MLS/HR (1000ml) Sodium Chloride 0.9% [Normal Saline] 1,000 ml IV ASDIRECTED - Assessment/Plan Last 24 Hours: My Active Orders 04/20/19 10:44 Chest 1V Frontal [CR] Stat 04/20/19 11:30 Sodium Chloride 0.9% @ 150 MLS/HR (1000ml) Sodium Chloride 0.9% [Normal Saline] 1,000 ml IV ASDIRECTED
[2019-04-20 16:18] VITALS: BP 108/66; PULSE 66
== END 2019-04-20 12:30 ==
LOC: LL.ED 09:55
DX: N17.9 Acute kidney failure, unspecified (principal); R55 Syncope and collapse; I48.91 Unspecified atrial fibrillation; I25.10 Atherosclerotic heart disease of native coronary artery without angina pectoris; E78.00 Pure hypercholesterolemia, unspecified; I10 Essential (primary) hypertension; J44.9 Chronic obstructive pulmonary disease, unspecified; E11.21 Type 2 diabetes mellitus with diabetic nephropathy; E66.9 Obesity, unspecified; F41.9 Anxiety disorder, unspecified; Z88.8 Allergy status to other drugs, medicaments and biological substances; Z79.899 Other long term (current) drug therapy; Z79.4 Long term (current) use of insulin; Z79.01 Long term (current) use of anticoagulants; Z85.46 Personal history of malignant neoplasm of prostate; Z68.34 Body mass index [BMI] 34.0-34.9, adult
CPT/HCPCS: 36415; 71045; 80053; 85025; 93005; 96360; 99285; J7030; 99284